=== PATIENT | female | born 1955 | race Caucasian/White ===

== ENCOUNTER → 2017-04-29 | Outpatient (CLI) | payer OTHER ==
[~2017-04-29] MED LIST: ATIVAN0.5 MG PO; ESTRADIOL 1 MG T1 M1 PO; METFORMIN HCL500 MG PO; PAXIL10 MG PO; SEROQUEL 50 MG50 MG PO
--- NOTE | ~2017-04-29 | EKG ---
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
== END ==
LOC: LITH 06:23
DX: N20.1 Calculus of ureter (principal); I49.9 Cardiac arrhythmia, unspecified; G47.30 Sleep apnea, unspecified; E11.9 Type 2 diabetes mellitus without complications; K76.0 Fatty (change of) liver, not elsewhere classified; Z98.890 Other specified postprocedural states; Z90.710 Acquired absence of both cervix and uterus; Z90.49 Acquired absence of other specified parts of digestive tract; Z95.0 Presence of cardiac pacemaker; Z79.2 Long term (current) use of antibiotics; Z79.899 Other long term (current) drug therapy